=== PATIENT | female | born 1965 | race Caucasian/White ===

== ENCOUNTER 2017-10-01 21:03 | Emergency (ER) | payer MEDICAID ==
[2017-10-01] MEDS: HYDROCODONE/APAP (10/325) TAB PO (23:45)
[2017-10-01] MEDS: LIDOCAINE 1% (MDV) 20 ML INJ SC (23:47)
[2017-10-01] MEDS: DIPHTH/TET/ACEL PERTUSS (ADULT) 0.5 ML VIAL IM* (23:47)
[2017-10-02] MEDS: LIDOCAINE 1% (MDV) 10 ML INJ INFIL
[2017-10-02] MEDS: traMADol 50 MG TAB PO (02:32)
== END 2017-10-02 03:08 | disposition home or self-care (01) ==
LOC: FTE 10-02 03:08
DX: S61.211A Laceration without foreign body of left index finger without damage to nail, initial encounter (principal); I10 Essential (primary) hypertension; W25.XXXA Contact with sharp glass, initial encounter; Y92.9 Unspecified place or not applicable; Z23 Encounter for immunization
CPT/HCPCS: 12002; 73130-LT; 90471; 90715; 99283-25

== ENCOUNTER 2017-10-12 16:49 | Emergency (ER) | payer MEDICAID | END 2017-10-12 17:42 | disposition home or self-care (01) | LOC: E/R 17:42 | DX: Z48.02 Encounter for removal of sutures (principal); I10 Essential (primary) hypertension | CPT/HCPCS: 99281; Z7502 ==

== ENCOUNTER 2018-01-30 17:51 | Emergency (ER) | payer MEDICAID ==
[2018-01-30] MEDS: KETOROLAC 60 MG INJ IM (18:41)
[2018-01-30] MEDS: ONDANSETRON (ODT) 4 MG TAB ODT (18:41)
[2018-01-30] MEDS: HYDROCODONE/APAP (5/325) TAB PO (18:41)
== END 2018-01-30 19:53 | disposition home or self-care (01) ==
LOC: FTE 17:51
DX: S29.012A Strain of muscle and tendon of back wall of thorax, initial encounter (principal); I10 Essential (primary) hypertension; X58.XXXA Exposure to other specified factors, initial encounter; Y92.9 Unspecified place or not applicable
CPT/HCPCS: 71046; 96372; 99284-25